=== PATIENT | female | born 1995 | race Caucasian/White ===

== ENCOUNTER 2017-06-07 20:27 | Emergency (ER) | payer OTHER ==
[2017-06-07 20:37] VITALS: BP 147/109; PULSE 89; RESP 16; TEMP 97.3; O2SAT 98
--- NOTE | 2017-06-07 21:46 | EDPHY ---
H & P Stated Complaint: right ankle injury Time Seen by Provider: 06/07/17 21:42 HPI/ROS: CHIEF COMPLAINT: Right ankle pain HISTORY OF PRESENT ILLNESS: The patient is a 20-year-old female who comes to the emergency department stating that she rolled her ankle earlier today in class. The patient has been walking on it all day. No abrasion or laceration. No foot pain. No knee or cox pain. She denies other injuries. REVIEW OF SYSTEMS: Constitutional: denies: chills, fever, recent illness, recent injury EENTM: denies: blurred vision, double vision, nose congestion Respiratory: denies: cough, shortness of breath Cardiac: denies: chest pain, irregular heart rate, lightheadedness, palpitations Gastrointestinal/Abdominal: denies: abdominal pain, diarrhea, nausea, vomiting, blood streaked stools Genitourinary: denies: dysuria, frequency, hematuria, pain Musculoskeletal: See HPI Skin: denies: lesions, rash, jaundice, bruising Neurological: denies: headache, numbness, paresthesia, tingling, dizziness, weakness Hematologic/Lymphatic: denies: blood clots, easy bleeding, easy bruising Immunologic/allergic: denies: HIV/AIDS, transplant EXAM: GENERAL: Well-appearing, well-nourished and in no acute distress. HEAD: Atraumatic, normocephalic. EYES: Pupils equal round and reactive to light, extraocular movements intact, sclera anicteric, conjunctiva are normal. ENT: TMs normal, nares patent, oropharynx clear without exudates. Moist mucous membranes. NECK: Normal range of motion, supple without lymphadenopathy or JVD. LUNGS: Breath sounds clear to auscultation bilaterally and equal. No wheezes rales or rhonchi. HEART: Regular rate and rhythm without murmurs, rubs or gallops. ABDOMEN: Soft, nontender, normoactive bowel sounds. No guarding, no rebound. No masses appreciated. BACK: No CVA tenderness, no spinal tenderness, step-offs or deformities EXTREMITIES: Right ankle pain, mild swelling over lateral malleolus. No bony tenderness. No tenderness of the foot or lower cox. NEUROLOGICAL: Cranial nerves II through XII grossly intact. Normal speech, normal gait. 5/5 strength, normal movement in all extremities, normal sensation PSYCH: Normal mood, normal affect. SKIN: Warm, dry, normal turgor, no visible rashes or lesions. Source: Patient Exam Limitations: No limitations - Personal History LMP (Females 10-55): 8-14 Days Ago Current Tetanus/Diphtheria Vaccine: Yes Current Tetanus Diphtheria and Acellular Pertussis (TDAP): Yes - Medical/Surgical History Hx Asthma: No Hx Chronic Respiratory Disease: No Hx Diabetes: No Hx Cardiac Disease: No Hx Renal Disease: No Hx Cirrhosis: No Hx Alcoholism: No Hx HIV/AIDS: No Hx Splenectomy or Spleen Trauma: No Other PMH: oral surgery - Family History Significant Family History: No pertinent family hx - Social History Smoking Status: Never smoked Alcohol Use: Sober Drug Use: None Constitutional: Initial Vital Signs Temperature (C) 36.3 C 06/07/17 20:34 Heart Rate 89 06/07/17 20:34 Respiratory Rate 16 06/07/17 20:34 Blood Pressure 147/109 H 06/07/17 20:34 O2 Sat (%) 98 06/07/17 20:34 O2 Delivery Mode Room Air Allergies/Adverse Reactions: No Known Allergies Allergy (Unverified 06/07/17 20:37) Home Medications: Medication Instructions Recorded NK [No Known Home Meds] 06/07/17 Medical Decision Making - Diagnostics Imaging: I viewed and interpreted images myself Procedures: Procedure: Splint placement. A air ankle splint was applied. After application of the splint I returned and re-examined the patient. The splint was adequately immobilizing the joint and distal to the splint the patient's circulation and sensation was intact. Ankle brace ED Course/Re-evaluation: We discussed the patient's x-rays. She is reassured. I will place her in a brace. Weight-bearing as tolerated. We discussed follow-up as well as indications for returning prior Differential Diagnosis: Partial list of the Differential diagnosis considered include but were not limited to; ankle sprain, ankle fracture and although unlikely based on the history and physical exam, I also considered ft fracture, knee injury. I discussed these differential diagnoses and the plan with the patient as well as the usual and expected course. The patient understands that the diagnosis is provisional and that in medicine we are not always correct and that further workup is often warranted. Usual and customary warnings were given. All of the patient's questions were answered. The patient was instructed to return to the emergency department should the symptoms at all worsen or return, otherwise to followup with the physician as we discussed. Departure - Departure Disposition: Home, Routine, Self-Care Clinical Impression: Right ankle sprain Qualifiers: Encounter type: initial encounter Involved ligament of ankle: anterior talofibular ligament Qualified Code(s): S93.491A - Sprain of other ligament of right ankle, initial encounter Condition: Good Instructions: Ankle Sprain (ED), R.I.C.E. Treatment (ED) Referrals: NONE *PRIMARY CARE P,. [Primary Care Provider] - As per Instructions Marcus Luevano MD [Medical Doctor] - As per Instructions
== END 2017-06-07 22:22 | disposition home or self-care (01) ==
DX: S93.491A Sprain of other ligament of right ankle, initial encounter (principal); X58.XXXA Exposure to other specified factors, initial encounter; Y99.8 Other external cause status
CPT/HCPCS: L4350